=== PATIENT | female | born 1985 | race Caucasian/White ===

== ENCOUNTER → 2016-11-30 | Outpatient (CLI) | payer OTHER ==
--- NOTE | 2016-11-30 12:52 | RADIOLOGY REPORT PS360 ---
BONE DENSITOMETRY(HIP:LT SPINE HISTORY: VIT D DEFICIENCY, ANOREXIA ORDERING PHYSICIAN: Sha Cramer MD PATIENT AGE: 31 years COMPARISON: None FINDINGS: The BMD measured at the AP spine, left femoral neck, right femoral neck is 1.187 g/sq cm, 1.047 g/sq cm and 1.050 g/sq cm all have an a T score of 0.1. This is considered normal according to the World Health Organization criteria. Fracture risk is low. Recommend follow-up exam November 2018. IMPRESSION: Normal bone density
== END ==
LOC: RAD 08:23
DX: E55.9 Vitamin D deficiency, unspecified (principal); F50.00 Anorexia nervosa, unspecified

== ENCOUNTER → 2017-01-31 | Outpatient (CLI) | payer OTHER | LOC: DIETICIAN 15:52 | DX: F50.00 Anorexia nervosa, unspecified (principal); Z71.3 Dietary counseling and surveillance ==

== ENCOUNTER → 2017-05-17 | Outpatient (CLI) | payer OTHER ==
[2017-05-17 18:33] LABS: BUN 20 mg/dL (7-18)
[2017-05-17 18:35] LABS: GFR (ESTIMATED) 83 ML/MIN (59-)
== END ==
LOC: LAB 17:31
PROVIDERS: Family Medicine
DX: R25.2 Cramp and spasm (principal); E87.6 Hypokalemia

== ENCOUNTER → 2017-07-11 | Outpatient (CLI) | payer OTHER | LOC: DIETICIAN 15:54 | DX: F50.9 Eating disorder, unspecified (principal); Z71.3 Dietary counseling and surveillance | CPT/HCPCS: G0108 ==

== ENCOUNTER → 2017-08-08 | Outpatient (CLI) | payer OTHER | LOC: DIETICIAN 15:48 | DX: F50.9 Eating disorder, unspecified (principal); Z71.3 Dietary counseling and surveillance | CPT/HCPCS: G0108 ==

== ENCOUNTER → 2017-08-24 | Outpatient (CLI) | payer OTHER | LOC: LAB 15:36 | DX: E87.6 Hypokalemia (principal); E55.9 Vitamin D deficiency, unspecified ==